=== PATIENT | female | born 1990 | race Caucasian/White ===

== ENCOUNTER 2017-09-17 06:05 | Emergency (ER) | payer SELFPAY ==
[2017-09-17 06:13] VITALS: BMI 32.3
[2017-09-17 06:17] VITALS: RESP 20
[2017-09-17 07:03] LABS: BASO # 0.1 K/uL (0.0-0.2); BASO % 0.7 % (0.0-2.0); EOS # 0.1 K/uL (0.0-0.7); EOS % 0.8 % (0.0-4.0); HEMOGLOBIN 13.5 g/dL (11.0-16.0); LYMPH # 2.7 K/uL (1.0-4.3); MEAN CELL VOLUME 79.8 fL (81.0-99.0); MEAN CORPUSCULAR HEMOGLOBIN 26.3 pg (27.0-31.0); MEAN CORPUSCULAR HGB CONC 32.9 g/dL (33.0-37.0); MEAN PLATELET VOLUME 8.6 fL (7.2-11.7); MONO # 0.7 K/uL (0.0-0.8); MONO % 7.8 % (0.0-10.0); NEUT # 5.5 K/uL (1.8-7.0); NEUT % 60.7 % (50.0-75.0); RBC 5.13 Mil/uL (3.80-5.20); RED CELL DISTRIBUTION WIDTH 16.2 % (11.5-14.5)
[2017-09-17 07:16] VITALS: BP 131/91; PULSE 97; TEMP 98.7; O2SAT 97
[2017-09-17 07:28] LABS: HCG,QUALITATIVE URINE NEGATIVE (NEGATIVE)
[2017-09-17 07:29] LABS: ALB/GLOB RATIO 1.1 (1.0-2.1); ALBUMIN 4.4 g/dL (3.5-5.0); ALT/SGPT 54 U/L (9-52); AST/SGOT 45 U/L (14-36); BLOOD UREA NITROGEN 11 mg/dL (7-17); CALCIUM 8.8 mg/dl (8.6-10.4); GFR AFRICAN-AMERICAN > 60; GFR NON-AFRICAN AMERICAN > 60
[2017-09-17 07:30] LABS: SQUAMOUS EPITHIAL 2 /hpf (0-5); URINE BACTERIA RARE (<OCC); URINE BILIRUBIN NEGATIVE (NEGATIVE); URINE BLOOD NEGATIVE (NEGATIVE); URINE CLARITY Hazy (Clear); URINE COLOR Yellow (YELLOW); URINE GLUCOSE (UA) NORMAL (Normal); URINE LEUKOCYTE ESTERASE NEG Leu/uL (Negative); URINE PROTEIN 1+ mg/dL (NEGATIVE); URINE UROBILINOGEN NORMAL mg/dL (0.2-1.0)
[2017-09-17 08:21] LABS: BARBITURATES, UR NEGATIVE (NEGATIVE); BENZODIAZEPINES, UR NEGATIVE (NEGATIVE); OPIATES, UR NEGATIVE (NEGATIVE); PHENCYCLIDINE, UR NEGATIVE (NEGATIVE)
--- NOTE | 2017-09-17 21:22 | CARD ---
APPROVED REPORT EKG Measurement Heart [id number] [id number] <Conclusion> Normal sinus rhythm Normal ECG
--- NOTE | 2017-10-04 10:49 | C.PDOC ---
Chief Complaint (Nursing): Chest Pain Past Medical History Vital Signs: Last Vital Signs Temp 98.7 F 09/17/17 07:15 Pulse 97 H 09/17/17 07:15 Resp 20 09/17/17 07:15 BP 131/91 H 09/17/17 07:15 Pulse Ox 97 10/04/17 10:54 - Medical History PMH: Anxiety, Seizures (EPILEPSY) Denies: Diabetes, Hepatitis, HIV, HTN, Sexually Transmitted Disease Family History: States: Unknown Family Hx - Social History Hx Tobacco Use: Yes Hx Alcohol Use: Yes Hx Substance Use: No ED Course And Treatment - Laboratory Results Result Diagrams: 09/17/17 06:59 09/17/17 06:59 O2 Sat by Pulse Oximetry: 97 Disposition - Disposition Disposition: HOME/ ROUTINE Condition: GOOD Forms: [facility] ([place]i)
== END 2017-09-17 07:23 | disposition home or self-care (01) ==
LOC: C.ER 06:05
DX: Z02.89 Encounter for other administrative examinations (principal); R07.9 Chest pain, unspecified
CPT/HCPCS: 80053; 81001; 84703; 85025; 93005; G0480; LWBS0

== ENCOUNTER 2018-04-14 11:34 | Emergency (ER) | payer OTHER ==
[2018-04-14 12:12] VITALS: BMI 33.4
[2018-04-14 13:10] LABS: SQUAMOUS EPITHIAL 13 /hpf (0-5); URINE BACTERIA RARE (<OCC); URINE BILIRUBIN NEGATIVE (NEGATIVE); URINE BLOOD NEGATIVE (NEGATIVE); URINE CLARITY Hazy (Clear); URINE COLOR Yellow (YELLOW); URINE GLUCOSE (UA) NORMAL (Normal); URINE LEUKOCYTE ESTERASE NEG Leu/uL (Negative); URINE PROTEIN NEGATIVE (NEGATIVE)
[2018-04-14 13:31] LABS: BARBITURATES, UR NEGATIVE (NEGATIVE); BENZODIAZEPINES, UR NEGATIVE (NEGATIVE); PHENCYCLIDINE, UR NEGATIVE (NEGATIVE)
[2018-04-14 14:01] LABS: OPIATES, UR POSITIVE (NEGATIVE)
--- NOTE | 2018-04-14 15:22 | US ---
Date of service: 04/14/2018 PROCEDURE: OB Pelvic Ultrasound HISTORY: No Care LMP: 11/02/2017, suggesting estimated gestational age of 23 weeks 2 days. COMPARISON: None available. FINDINGS: UTERUS: Gestational sac: Single intrauterine gestation. Heart rate: 137 bpm. age (Ultrasound estimated): 23 weeks 2 days Sharon-gestational hemorrhage: None. Date of delivery (Ultrasound estimated) : lie is breech. A posterior fundal placenta is identified. No placental abruption or previa. No myometrial lesions appreciated grossly. The following biometry was obtained: Biparietal diameter: 5.5 cm corresponds to 22 weeks 6 days. Head circumference: 20.4 cm corresponds 24 weeks 4 days. Abdominal circumference 17.6 cm correspond 22 weeks 3 days. Femur length: 4.2 cm corresponds to 23 weeks 5 days. AC/AC ratio 1.16 which falls within normal range. Estimated date of delivery 08/12/2018. Limited anatomy. Four-chamber heart is identified. No gross spinal dysraphism appreciable. No definite hydrocephalus. No hydronephrosis with urinary bladder unremarkable appearing. Three vessel umbilical goal cord Doppler confirmed, nor is the abdominal umbilical cord insertion. CERVIX: Measures 3.4 cm. Long and closed. No cervical abnormality seen. RIGHT OVARY: Not identified. LEFT OVARY: None identified. FREE FLUID: None. OTHER FINDINGS: None. IMPRESSION: A single viable intrauterine gestation identified in cephalic lie with average ultrasonic age of 23 weeks 2 days, concordant with LMP derived dates. No placental abruption or previa. Follow-up elective obstetric ultrasound can be performed for full anatomical survey.
--- NOTE | 2018-04-14 16:18 | OBHP ---
Datetime: 04/14/2018 14:49 IP Adm Impression: , intrauterine ; No Active Labor; Threatened (Annotations: Data stored by CPN on behalf of user) IP Chief Complaint Other: No care IP Admit Plan: Observation/Evaluation Admit Comment, IP Provider: 28 yo female with one set of twins at term and an IUP at 23.2 w eeks per LMP af 10/29/17. Presented with c/o of mild pelvic cramping intermittent since yesterday. Ad mits to + FM, Denies LOF, VB or VD. Admits to no PNC but gave different information to the Nurse, the Attending and the Student and when attempt made to clarify her information, she became belligerant a nd did not wanted to answer anymore questions. Stated that she has a Hx of Epilepsy but takes no medication for years. Also stated to the Nurse t hat she is using Heroin for about one month but then states that she is using it since she can rememb er. Past OB Hx 6 with one set of twins and 2 TOP's PSHx: Denied Meds: No PNV, Subotox for past 3 days KNDA Scial Denies smoking and ETOH PE Abd soft and FH at about 2 fingerbreaths above umbilicus Denies urinary c/o's but admits to constipation Drinks little to no water tracing reassuring for GA. No uterine activity recorded or palpated UA, UDS and OBUS ordered Unable to perform SVE because transportation ready to take her for US and planned to do it upon re turn. Pelvic Type - PN: Adequate Extremities - PN: Normal Abdomen - PN: Normal Back - PN: Normal Breast - PN: Not Done Lungs - PN: Normal Heart - PN: Normal Thyroid - PN: Normal Neurologic - PN: Normal HEENT - PN: Normal General - PN: Normal FHR - Baseline A Provider: 140 Membranes, Provider: Intact Gestation - Est Wks by US: 23.2 EGA AdmitDate IP: 23.2 Vital Signs Provider: Reviewed IP Chief Complaint: Maternal discomfort; evaluation Genitourinary Exam: Normal DTRs - PN: Normal
--- NOTE | 2018-04-14 16:34 | OBDCSUM ---
Datetime: 04/14/2018 14:30 Discharge Time: 04/14/2018 14:26 Disch Referrals: None Discharge Comment, Provider: 28 yo female with one set of twins at term and an IUP at 23.2 weeks per LMP of 10/29/17. Presented with c/o of mild pelvic cramping intermittent since yesterday. A dmits to + FM, Denies LOF, VB or VD. Admits to no PNC but gave different information to the Nurse, wayne austin Attending and the Student and when attempt made to clarify her information, she became belligerant and did not wanted to answer anymore questions. Stated that she has a Hx of Epilepsy but takes no medication for years. Also stated to the Nurse t hat she is using Heroin for about one month but then stated that she is using it since she can rememb er. Past OB Hx 6 with one set of twins and 2 TOP's PSHx: Denied Meds: No PNV, Subotox for past 3 days KNDA Social Denies smoking and ETOH PE Abd soft and FH at about 2 fingerbreaths above umbilicus Denies urinary c/o's but admits to constipation Drinks little to no water tracing reassuring for GA. No uterine activity recorded or palpated UA with Dehydration, UDS + for Opiates OBUS c/w IUP at 23.4 weeks and posterior placenta about 2 cms from cervix, otherwise nl Unable to examine the patient or to discuss US findings because patient sneaked out of the Unit as soon as she returned from the US exam and without Staff awareness. Nursing Staff notified DCP_P via phone Unable to perform SVE because transportation ready to take her for US and planned to do it upon re turn. Discharge Diagnosis Prov Other: No Care + Opiates in urine Moderate Dehydration Constipation Sneaked out of the unit without Staff awareness
--- NOTE | 2018-04-14 17:08 | OBDCSUM ---
Datetime: 04/14/2018 14:30 Discharge Time: 04/14/2018 14:26 Disch Referrals: None Discharge Comment, Provider: 28 yo female with one set of twins at term and an IUP at 23.2 weeks per LMP of 10/29/17. Presented with c/o of mild pelvic cramping intermittent since yesterday. A dmits to + FM, Denies LOF, VB or VD. Admits to no PNC but gave different information to the Nurse, wayne austin Attending and the Student and when attempt made to clarify her information, she became belligerant and did not wanted to answer anymore questions. Stated that she has a Hx of Epilepsy but takes no medication for years. Also stated to the Nurse t hat she is using Heroin for about one month but then stated that she is using it since she can rememb er. Past OB Hx 6 with one set of twins and 2 TOP's PSHx: Denied Meds: No PNV, Subotox for past 3 days KNDA Social Denies smoking and ETOH PE Abd soft and FH at about 2 fingerbreaths above umbilicus Denies urinary c/o's but admits to constipation Drinks little to no water tracing reassuring for GA. No uterine activity recorded or palpated UA with Dehydration, UDS + for Opiates OBUS c/w IUP at 23.4 weeks and posterior placenta about 2 cms from cervix, otherwise nl Unable to examine the patient or to discuss US findings because patient sneaked out of the Unit as soon as she returned from the US exam and without Staff awareness. Discharge Diagnosis Prov Other: No Care + Opiates in urine Moderate Dehydration Constipation Sneaked out of the unit without Staff awareness
[2018-04-14 21:26] VITALS: BP 116/66; PULSE 78; RESP 20
== END 2018-04-14 14:25 | disposition left against medical advice (07) ==
LOC: C.EROB 11:34
DX: O09.32 Supervision of pregnancy with insufficient antenatal care, second trimester (principal); O26.892 Other specified pregnancy related conditions, second trimester; E86.0 Dehydration; K59.00 Constipation, unspecified; Z3A.23 23 weeks gestation of pregnancy